=== PATIENT | male | born 1950 | race Caucasian/White ===

== ENCOUNTER 2018-11-19 07:49 | Outpatient (CLI) ==
--- NOTE | 2018-11-19 11:26 | DI ---
EXAM: CHEST FRONTAL AND LATERAL VIEWS HISTORY: Chest pain. COMPARISON: 05/17/2017 FINDINGS: Low lung volumes. Prominent heart size is again noted. Sternotomy wires are present. Th ere is at least mild atherosclerotic disease suggested. No acute infiltrates are seen. No vascular congestion. There is no consolidation, visible pleural fluid or pneumothorax. Bones reveal no acute fracture. IMPRESSION: Prominent heart size. Atherosclerosis. No acute cardiopulmonary process.
--- NOTE | 2018-11-19 11:35 | CT ---
EXAM: CT chest without contra HISTORY: Chest wall/rib pain COMPARISON: None TECHNIQUE: CT chest performed without intravenous contrast. Coronal and sagittal reformatted images obtained. FINDINGS: Thoracic inlet unremarkable. Heart top normal in size. Post CABG changes. Coronary calc ifications. Aorta normal in caliber. Mild atherosclerosis. Esophagus unremarkable. Evaluation for lymphadenopathy limited without contrast. No lymphadenopathy identified. Calcified mediastinal and right hilar lymph nodes, consistent with old granulomatous disease. Visualized portion upper abdome n demonstrates no acute abnormality. No acute abnormalities of the bones. Degenerative change in th e spine. Median sternotomy wires. Minimal chronic loss of height of several upper thoracic vertebra l bodies. Central airway patent. No airspace consolidation. No pleural effusion. No pneumothorax. Mild right basilar subsegmental atelectasis. Calcified granuloma right lung base. IMPRESSION: 1. Mild right basilar atelectasis. No airspace consolidation. 2. Post CABG changes.
== END 2018-11-19 07:50 | disposition home or self-care (01) ==
LOC: RAD 07:49
PROVIDERS: ATTEND Family Medicine
DX: R07.89 Other chest pain (principal); R07.81 Pleurodynia

== ENCOUNTER 2018-12-06 07:56 | Outpatient (CLI) ==
--- NOTE | 2018-12-06 10:42 | MRI ---
EXAM: MRI of the thoracic spine without contrast HISTORY: chest pain, rib pain TECHNIQUE: Multiplanar imaging of the thoracic spine was performed using T1, it is too, inversion re covery sequences. Comparison none. FINDINGS: There is been previous midline sternotomy. There is no bone marrow edema seen within the thoracic spine. The thoracic spinal cord demonstrates normal signal on T2W images. The paraspinal s oft tissues are normal. There are no extraaxial collections are signs of mass effect on the thoracic spinal cord. Segmental analysis: T1-T2: The central canal and neural foramina appear patent. T2-T3: The central canal and neural foramina appear patent. T3-T4: The central canal and neural foramina appear patent. T4-T5: The central canal and neural foramina appear patent. T5-T6: The central canal and neural foramina appear patent. T6-T7: The central canal and neural foramina appear patent. T7-T8: The central canal and neural foramina appear patent. T8-T9: There is mild disc bulge with a small central broad-based disc protrusion at this level measu ring approximately 2-3 mm AP causing mild ventral indentation on the thecal sac and mild narrowing of the central canal. The neural foramina appear patent. T9-T10: There is mild disc bulge. The central canal and neural foramina appear patent. T10-T11: There is mild disc bulge. The central canal and neural foramina appear patent. T11-T12: The central canal and neural foramina appear patent. T12-L1: The central canal and neural foramina appear patent. IMPRESSION: No evidence of acute compression fracture. There is no central canal stenosis. There is a small central broad-based disc protrusion seen at T8-T9 causing mild ventral indentation o n the thecal sac. No cord signal abnormalities are seen.
== END 2018-12-06 07:57 | disposition home or self-care (01) ==
LOC: RAD 07:56
PROVIDERS: ATTEND Family Medicine
DX: R07.89 Other chest pain (principal); R07.81 Pleurodynia